=== PATIENT | female | born 1965 | race Caucasian/White ===

== ENCOUNTER 2016-06-09 | Emergency (ER) | payer OTHER ==
[~2016-06-09] MED LIST: ACETAMINOPHEN500 M4 PO; AMLODIPINE BESYL5 MG PO; ASPIRIN EC81 MG PO; LOPRESSOR100 M1 PO; LOPRESSOR50 M1 PO; METFORMIN HCL500 M2 PO; MULTIVITAMINS1 EAC6 PO; NEURONTIN100 M1 PO; NEURONTIN600 M1 PO; TUMS200 MG PO; VITAMIN D1000 UNI3 PO; VITAMIN D2000 UNI1; VITAMIN D3 COM1 EACH PO; ZESTRIL20 M3 PO
[2016-06-09] MEDS ORDERED: LOPRESSOR100 M1 PO (17:04)
[2016-06-09] MEDS ORDERED: TRICOR145 M2 PO (17:05)
[2016-06-09] MEDS ORDERED: VITAMIN D31000 UNI3 PO (17:06)
[2016-06-09] MEDS ORDERED: ONE DAILY FOR1 EAC4 PO (17:07)
[2016-06-09] MEDS ORDERED: FERROUS SULFAT325 MG PO (17:07)
[2016-06-09] MEDS ORDERED: MACROBID 100 M100 M1 PO (18:13)
== END 2016-06-09 18:48 ==
DX: N39.0 Urinary tract infection, site not specified (principal); R53.1 Weakness; R20.2 Paresthesia of skin; E11.9 Type 2 diabetes mellitus without complications; I10 Essential (primary) hypertension; E78.5 Hyperlipidemia, unspecified; Z86.73 Personal history of transient ischemic attack (TIA), and cerebral infarction without residual deficits; F17.210 Nicotine dependence, cigarettes, uncomplicated; Z79.82 Long term (current) use of aspirin; Z79.899 Other long term (current) drug therapy